=== PATIENT | female | born 1985 | race Two or more races ===

== ENCOUNTER 2020-11-03 07:19 | Inpatient (IN) ==
[2020-11-03 07:27] VITALS: BMI 29.2
[2020-11-03] MEDS ORDERED: D5 1/2 NS 1000 ML 1,000 ML IV ONE (07:44)
[2020-11-03] MEDS ORDERED: BETADINE SOLN ONE (07:44)
[2020-11-03] MEDS ORDERED: PITOCIN ONE (07:44)
[2020-11-03] MEDS ORDERED: D5LR 1L W PITOCIN 10 UNITS/L 10 UNITS/1,000 ML BAG IV ONE (07:45)
[2020-11-03 07:48] LABS: BILIRUBIN,URINE NEGATIVE (NEGATIVE); BLOOD/HEMOGLOBIN,URINE NEGATIVE (NEGATIVE); GLUCOSE, URINE NEGATIVE (NEGATIVE); KETONES,URINE NEGATIVE (NEGATIVE); LEUKOCYTE ESTERASE ,URINE NEGATIVE (NEGATIVE); NITRITES,URINE NEGATIVE (NEGATIVE); PROTEIN,URINE NEGATIVE (NEGATIVE); UROBILINOGEN,URINE NORMAL (NORMAL)
[2020-11-03 07:50] LABS: APPEARANCE,URINE CLEAR (CLEAR); COLOR,URINE STRAW (YELLOW)
[2020-11-03] MEDS ORDERED: PHENERGAN INJ 25 MG IM PRN ×2 (07:51→12:40)
[2020-11-03] MEDS ORDERED: REGLAN INJ 10 MG VIAL IVP PRN (07:51)
[2020-11-03] MEDS ORDERED: DILAUDID INJ IVP PRN (07:51)
[2020-11-03] MEDS ORDERED: MORPHINE SULFATE INJ 2 MG INJ IVP PRN (07:51)
[2020-11-03] MEDS ORDERED: D5LR 1L W PITOCIN 10 UNITS/L 10 UNITS/1,000 ML BAG IV PRN (07:51)
[2020-11-03] MEDS ORDERED: PITOCIN IVP ONE (07:51)
[2020-11-03] MEDS ORDERED: D5 1/2 NS 1000 ML 1,000 ML IV SCH (08:00)
[2020-11-03] MEDS: D5 1/2 NS 1L W PITOCIN 20 UNITS/L 20 UNITS/1,000 ML BAG IV ONE ×2 (08:00→09:22)
[2020-11-03 08:14] LABS: BASOPHILS % (AUTO) 0.3 % (0.2-1.0); EOSINOPHILS # (AUTO) 0.1 x10^3/uL (0.0-0.2); EOSINOPHILS % (AUTO) 1.1 % (0.9-2.9); HEMOGLOBIN 8.2 g/dL (12.0-16.0); LYMPHOCYTES # (AUTO) 2.1 X10^3/uL (1.3-2.9); LYMPHOCYTES % (AUTO) 18.3 % (21.0-51.0); MEAN CORPUSCULAR HEMOGLOBIN 20.4 pg (27.0-34.0); MEAN CORPUSCULAR HGB CONC 30.3 g/dL (33.0-35.0); MEAN CORPUSCULAR VOLUME 67.1 fL (80.0-100.0); MEAN PLATELET VOLUME 9.3 fL (7.4-11.0); MONOCYTES # (AUTO) 0.5 x10^3/uL (0.3-0.8); MONOCYTES % (AUTO) 4.8 % (0.0-13.0); NEUTROPHILS # (AUTO) 8.5 x10^3/uL (2.2-4.8); NEUTROPHILS % (AUTO) 75.5 % (42.0-75.0); PLATELET COUNT 308 X10^3/uL (150.0-450.0); RED BLOOD COUNT 4.02 X10^6/uL (3.5-5.4); RED CELL DISTRIBUTION WIDTH 19.5 % (11.6-16.5); WHITE BLOOD COUNT 11.3 X10^3/uL (3.6-10.0)
[2020-11-03 08:21] LABS: BLOOD UREA NITROGEN 11 mg/dL (7-18); CALCIUM 8.8 mg/dL (8.5-10.1); CARBON DIOXIDE 23.2 mmol/L (21-32); CHLORIDE 101 mmol/L (98-107); CREATININE 0.62 mg/dL (0.55-1.02); SODIUM 135 mmol/L (136-145); eGFR NON BLACK RACES > 60 (>60)
[2020-11-03 08:51] LABS: HYPOCHROMASIA 2+; MICROCYTOSIS 1+; PLATELET MORPHOLOGY COMMENT NORMAL (NORMAL)
[2020-11-03] MEDS ORDERED: STADOL INJ IVP PRN (09:00)
[2020-11-03] MEDS ORDERED: FENTANYL INJ 100 mcg ONE (09:09)
[2020-11-03] MEDS ORDERED: LR 1000 ML IV 1,000 ML IV ONE (09:09)
[2020-11-03] MEDS ORDERED: NAROPIN EPIDURAL 0.2% 100 ML ONE (09:10)
[2020-11-03] MEDS ORDERED: D5 1/2 NS 1000 ML 1,000 ML with PITOCIN 20 UNITS IV SCH ×2 (13:00)
[2020-11-03] MEDS ORDERED: NS 100 ML IV 100 ML with VENOFER 400 MG IV NR ×4 (13:30→14:00)
[2020-11-03] MEDS ORDERED: MILK OF MAGNESIA PO PRN (13:42)
[2020-11-03] MEDS ORDERED: AMBIEN PO PRN (13:42)
[2020-11-03] MEDS ORDERED: DERMOPLAST PAIN RELIEF SPRAY TOP PRN (13:42)
[2020-11-03] MEDS ORDERED: ADACEL or BOOSTRIX TDaP VACCINE IM ONE (13:42)
[2020-11-03] MEDS ORDERED: NS 100 ML IV 100 ML with VENOFER 400 MG IV ONE ×2 (18:11)
[2020-11-03] MEDS: MOTRIN TAB 800 MG PO PRN (23:13)
[2020-11-04] MEDS ORDERED: NS 100 ML IV 100 ML with VENOFER 400 MG IV ONE ×2 (07:00)
[2020-11-04 07:14] LABS: BASOPHILS % (AUTO) 0.2 % (0.2-1.0); EOSINOPHILS # (AUTO) 0.1 x10^3/uL (0.0-0.2); EOSINOPHILS % (AUTO) 0.9 % (0.9-2.9); LYMPHOCYTES # (AUTO) 2.5 X10^3/uL (1.3-2.9); LYMPHOCYTES % (AUTO) 16.4 % (21.0-51.0); MEAN CORPUSCULAR HEMOGLOBIN 20.5 pg (27.0-34.0); MEAN CORPUSCULAR HGB CONC 30.5 g/dL (33.0-35.0); MEAN CORPUSCULAR VOLUME 67.1 fL (80.0-100.0); MEAN PLATELET VOLUME 9.7 fL (7.4-11.0); MONOCYTES # (AUTO) 0.7 x10^3/uL (0.3-0.8); MONOCYTES % (AUTO) 4.8 % (0.0-13.0); NEUTROPHILS % (AUTO) 77.7 % (42.0-75.0); PLATELET COUNT 243 X10^3/uL (150.0-450.0); RED BLOOD COUNT 2.96 X10^6/uL (3.5-5.4); RED CELL DISTRIBUTION WIDTH 19.6 % (11.6-16.5); WHITE BLOOD COUNT 15.5 X10^3/uL (3.6-10.0)
[2020-11-04 07:19] LABS: HEMOGLOBIN 6.1 g/dL (12.0-16.0)
[2020-11-04 07:20] LABS: HEMATOCRIT 19.9 % (36.0-47.0)
[2020-11-04] MEDS ORDERED: PRENATAL PLUS PO ONE (07:35)
[2020-11-04 07:43] LABS: HYPOCHROMASIA 2+; MICROCYTOSIS 1+; PLATELET MORPHOLOGY COMMENT NORMAL (NORMAL)
[2020-11-04] MEDS ORDERED: PRENATAL PLUS PO SCH (09:00)
[2020-11-04] MEDS: MOTRIN TAB 800 MG PO PRN (21:00)
[2020-11-05 13:39] VITALS: BP 131/78
== END 2020-11-05 13:35 | disposition home or self-care (01) | DRG 807 ==
LOC: ER 07:23 → LD 07:35 → MED/SURG 14:39
PROVIDERS: ADMIT Obstetrics & Gynecology Obstetrics; ATTEND Obstetrics & Gynecology Obstetrics
DX: O70.1 Second degree perineal laceration during delivery; Z3A.38 38 weeks gestation of pregnancy; O26.893 Other specified pregnancy related conditions, third trimester; Z20.828 Contact with and (suspected) exposure to other viral communicable diseases; Z37.0 Single live birth